=== PATIENT | female | born 1960 | race Caucasian/White ===

== ENCOUNTER 2018-03-24 10:31 | Inpatient (IN) | payer BC, OTHER ==
[~2018-03-24] VITALS: Ht 170.2 cm; Wt 57.2 kg
--- NOTE | 2018-03-24 15:20 | NUR ---
Pre-Admission Note Pre-Admission assessment completed in intake office. Client is a 58 y/o female seeking to be admitted for the medically managed withdrawal from ETOH (Vodka). Client presents with a flat affect, anxiety and agitation. Pt. reports drinking about 580ml of vodka a day for the past 16 months. Client reports drinking an ounce of vodka on the plane on her way here around 1330. Pt. has never been to drug rehab before. Pt. reports having a medical Hx of right ankle surgeries, HTN and Fractures on her pelvis, L2 and L4 from falls throughout the years. Pt. denies taking any home medications. Pt. is A/O x 4 and denies any SI, HI, VH, and AH. Will continue assessment when pt. is up on the unit.
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
[2018-03-24] MEDS ORDERED: ONDANSETRON ODT 4 MG TAB.RAPDIS SL PRN (18:30)
[2018-03-24] MEDS ORDERED: MAGNESIUM HYDROXIDE 30 ML LIQUID UDC PO PRN (18:30)
[2018-03-24] MEDS ORDERED: HYDROXYZINE PAMOATE 25 MG CAPSULE PO PRN (18:30)
[2018-03-24] MEDS ORDERED: MAG HYDROX/AL HYDROX/SIMETH 30 ML LIQUID UDC PO PRN (18:30)
[2018-03-24] MEDS ORDERED: DIAZEPAM 10 MG TABLET PO PRN (18:30)
[2018-03-24] MEDS ORDERED: DIAZEPAM 5 MG TABLET PO PRN (18:30)
[2018-03-24] MEDS ORDERED: LORAZEPAM 2 MG/1 ML VIAL IM PRN (18:30)
[2018-03-24] MEDS ORDERED: ACETAMINOPHEN 325 MG TABLET PO PRN (18:30)
[2018-03-24] MEDS ORDERED: LOPERAMIDE HCL 2 MG CAPSULE PO PRN ×2 (18:30)
[2018-03-24] MEDS ORDERED: THIAMINE HCL 200 MG/2 ML VIAL IM ONE (18:30)
[2018-03-24 19:02] LABS: *AMPHETAMINE, URINE NEGATIVE (NEGATIVE); *BARBITURATE, URINE NEGATIVE (NEGATIVE); *CANNABINOID, URINE NEGATIVE (NEGATIVE); *COCCAINE, URINE NEGATIVE (NEGATIVE); *OPIATE, URINE NEGATIVE (NEGATIVE); *PHENCYCLIDINE SCREEN,URINE NEGATIVE (NEGATIVE)
--- NOTE | 2018-03-24 19:30 | NUR ---
End of Shift: Pt. is a 58 y/o female admitted for the medically managed withdrawal from ETOH (Vodka). Pt. is currently on PRN medications and is awaiting further assessment by MD. Pt. provided urine and is awaiting labs to be drawn. Last CIWA of 7 at 1753. Safety measures in place. Endorse pt.'s care to oncoming shift.
--- NOTE | 2018-03-24 19:30 | NUR ---
Start of Shift Patient Received. Per endorsement, patient was admitted for ETOH and is set to start a 5 day Valium taper 03/25/18 0900 with PRN Valium available with increased signs and symptoms of withdrawal. Patients last noted drink was 1300 [address] flight[address] Patient is ambulatory with use of a walker. No medications administered upon admission. Admission CIWA 7. All needs attended to promptly. Will continue plan of care as ordered.
[2018-03-24 20:00] VITALS: BP 135/86
[2018-03-24 22:12] LABS: BASOPHILS % (AUTO) 0.4 % (0.0-2.0); EOSINOPHILS % (AUTO) 0.4 % (0.0-7.0); HEMATOCRIT 33.8 % (31.2-41.9); HEMOGLOBIN 11.6 g/dL (10.9-14.3); LYMPHOCYTES # (AUTO) 2.3 K/uL (20.0-40.0); LYMPHOCYTES % (AUTO) 33.8 % (20.5-51.5); MEAN CORPUSCULAR HEMOGLOBIN 36.9 uug (24.7-32.8); MEAN CORPUSCULAR HGB CONC 34 g/dL (32.3-35.6); MEAN CORPUSCULAR VOLUME 107.9 fL (75.5-95.3); MONOCYTES # (AUTO) 0.5 K/uL (2.0-10.0); MONOCYTES % (AUTO) 7.4 % (0.0-11.0); NEUTROPHILS # (AUTO) 3.9 K/uL (1.8-8.9); PLATELET COUNT (AUTO) 210 K/uL (179-408); RED BLOOD CELL COUNT(AUTO) 3.14 MIL/uL (3.63-4.92); WHITE BLOOD COUNT (AUTO) 6.7 K/uL (3.8-11.8)
[2018-03-24 22:29] LABS: ALANINE AMINOTRANSFERASE 31 U/L (14-59); ALKALINE PHOSPHATASE 86 U/L (50-136); AMYLASE 21 U/L (25-115); ASPARTATE AMINOTRANSFERASE 54 U/L (15-37); CARBON DIOXIDE 21 mmol/L (21-32); CHLORIDE 98 mmol/L (98-107); CREATININE 0.5 mg/dL (0.6-1.3); GLUCOSE 65 mg/dL (74-106); LIPASE 88 U/L (73-393); MAGNESIUM 1.3 mg/dL (1.8-2.4); POTASSIUM 3.2 mmol/L (3.5-5.1); TOTAL PROTEIN, SERUM 7.1 g/dL (6.4-8.2); UREA NITROGEN, BLOOD 15 mg/dL (7-18)
[2018-03-24 22:40] LABS: THYROID STIMULATING HORMONE 1.586 mIU/mL (0.358-3.740)
[2018-03-24 22:51] LABS: ETHANOL < 3 MG/DL (0-0)
[2018-03-25 00:11] VITALS: BP 158/93
[2018-03-25] MEDS ORDERED: MAGNESIUM OXIDE 400 MG TABLET PO ONE ×2 (00:15→09:00)
[2018-03-25] MEDS ORDERED: POTASSIUM CHLORIDE 20 MEQ TAB.PRT.SR PO ONE ×2 (00:15→09:00)
[2018-03-25] MEDS: CLONIDINE HCL 0.1 MG TABLET PO PRN ×2 (00:23→00:26)
[2018-03-25] MEDS: DIAZEPAM 10 MG TABLET PO PRN ×2 (00:23→00:26)
--- NOTE | 2018-03-25 00:30 | NUR ---
PRN Medication Administration Patient was noted awake for vitals. She is noted with increased anxiety, restlessness, agitation, increased sweats, tremulous, and light sensitivity. CIWA noted to be 12. PRN Clonidine and Valium 10 administered. patient was supplemented with Mag Ox 800mg and KDur 40meq for abnormal lab values. Patient tolerated well. All needs attended to promptly. Will continue to monitor.
--- NOTE | 2018-03-25 01:30 | NUR ---
PRN Medication Reassessment patient is noted in bed with eyes closed. Breathing even and non labored. No signs of restlessness or discomfort noted. PRN Clonidine and Valium noted to be effective. Will continue to monitor.
[2018-03-25 04:00] VITALS: BP 136/81
--- NOTE | 2018-03-25 04:00 | NUR ---
CIWA Patient is noted in bed with eyes closed. Breathing even and non labored. No signs of restlessness or discomfort noted. Vitals rendered and patient noted to remain asleep during vitals. CIWA unable to be completed as per order. Will continue to monitor.
--- NOTE | 2018-03-25 07:36 | NUR ---
BEGINNING OF SHIFT Patient endorsement report received from shift mechanic nurse, all pertinent information was discussed. Patient is a 58 year old female admitted on 03/24/2018. Patient with substance use of: etoh. with admitting Dx: etoh withdrawal. Patient continues on a 5 day Valium taper as ordered. Patient is scheduled to begin day 1 of taper. Patient received PRN: Clonidine and Valium during shift mechanic, as per shift mechanic nurse, medications were effective. Patient received in bed with eyes closed, respirations even and unlabored. Responsive to verbal stimuli, will educate patient regarding plan of care for the day and medication regimen. Will continue to monitor patient closely. Safety measures in place. call light kept with in reach.
--- NOTE | 2018-03-25 07:37 | NUR ---
End of Shift Patient is noted awake, alert and verbally responsive. Breathing even and non labored. Patient will start a 5 day Valium taper this morning 0900 with PRN Valium available for increased signs and symptoms of withdraws. Patient is ambulatory with use of a walker. Patient received PRN Valium 10 and PRN clonidine with medications noted to be effective. Labs resulted with potassium 3.2 and magnesium 1.3. New orders for one time dose of KDUR 40meq and one time dose of Mag Ox 800mg. patient noted to sleep a total of 8 hours. All needs attended to promptly. Will endorse to continue plan of care as ordered.
[2018-03-25 08:24] VITALS: BP 140/86
[2018-03-25] MEDS: FOLIC ACID 1 MG TABLET PO SCH (08:26)
[2018-03-25] MEDS: MULTIVITAMINS,THERAPEUTIC TABLET PO SCH (08:26)
[2018-03-25] MEDS: THIAMINE HCL 100 MG TABLET PO SCH (08:26)
[2018-03-25] MEDS: DIAZEPAM 10 MG TABLET PO SCH ×3 (08:26→21:53)
[2018-03-25] MEDS ORDERED: 4 DAY TAPER VALIUM-SERENITY PROTOCOL PO PRN (09:00)
[2018-03-25] MEDS ORDERED: TUBERCULIN,PURIF.PROT.DERIV. 5 TU/0.1 ML TEST ID ONE (09:00)
--- NOTE | 2018-03-25 09:00 | NUR ---
CIWA ASSESSMENT Patient noted exhibiting the following s/sx of withdrawal: Difficulty sitting still, fidgety, restless, arthralgias, myalgias, fine tremors, anxiety, agitation, difficulty concentrating, emotional volatility, and increased emotional amplitude. Patient with current COW score fo: 7, and current CIWA score of: 10. Received last dose of subutex taper, will continue to monitor. Addendum: 03/25/18 at 1836 by KIT COLUNGA LVN DISREGARD NOTE ABOVE, WRONG PATIENT
--- NOTE | 2018-03-25 09:01 | NUR ---
CIWA ASSESSMENT Patient exhibited the following s/sx of withdrawal: fine tremors, diaphoresis, anxiety, agitation, moderate head ache, difficulty concentrating, generalized discomfort, increased emotional amplitude, and emotional volatility. Patient with current CIWA score of: 15. Will continue to monitor, all scheduled meds administered as ordered.
--- NOTE | 2018-03-25 10:30 | NUR ---
Therapist prompted client to attend group therapy sessions and client agreed to do so.
[2018-03-25 12:39] VITALS: BP 153/93
--- NOTE | 2018-03-25 13:00 | NUR ---
CIWA ASSESSMENT Patient presents with the following s/sx: Fidgety, restless, Difficulty sitting still, arthralgias, myalgias, fine tremors, anxiety, agitation, difficulty concentrating, emotional volatility, and increased emotional amplitude. Patient with current COW score fo: 7, and current CIWA score of: 10. Will continue to monitor. Addendum: 03/25/18 at 1836 by KIT COLUNGA LVN DISREGARD NOTE ABOVE, WRONG PATIENT
--- NOTE | 2018-03-25 13:01 | NUR ---
CIWA ASSESSMENT Continues to exhibit the following s/sx of withdrawal: diaphoresis, anxiety, moderate head ache, difficulty concentrating, agitation,generalized discomfort, fine tremors,increased emotional amplitude, and emotional volatility. Patient with current CIWA score of: 15. Will continue to monitor, safety measures in place.
[2018-03-25 16:51] VITALS: BP 140/86
--- NOTE | 2018-03-25 17:00 | NUR ---
CIWA ASSESSMENT continues to exhibit the following s/sx: Fidgety, restless, Difficulty sitting still, arthralgias, myalgias, fine tremors, anxiety, agitation, difficulty concentrating, emotional volatility, and increased emotional amplitude. Patient with current COW score fo: 7, and current CIWA score of: 10. Will continue to monitor. Addendum: 03/25/18 at 1836 by KIT COLUNGA LVN DISREGARD NOTE ABOVE, WRONG PATIENT
--- NOTE | 2018-03-25 17:01 | NUR ---
CIWA ASSESSMENT Still noted presenting with: anxiety, moderate head ache, difficulty concentrating, diaphoresis,agitation, generalized discomfort, fine tremors,increased emotional amplitude, and emotional volatility. Patient with current CIWA score of: 15. Will continue to monitor.
[2018-03-25 18:17] LABS: CREATININE 0.7 mg/dL (0.6-1.3); MAGNESIUM 1.5 mg/dL (1.8-2.4); POTASSIUM 3.6 mmol/L (3.5-5.1)
--- NOTE | 2018-03-25 19:17 | NUR ---
END OF SHIFT Patient alert and oriented x4, continues with ongoing 5 day Valium taper, on day 1 of taper. Continues under close observation, during shift patient noted with flat affect and depressed/anxious mood. Patient exhibited the following s/sx of withdrawal: fine tremors, diaphoresis, anxiety, agitation, moderate head ache, difficulty concentrating, generalized discomfort, increased emotional amplitude, and emotional volatility. Patient with last CIWA score of: 15. Patient encouraged to participate in therapy sessions, and encouraged diversional activities to alleviate anxiety. Patient noted attending and participating, denies SI/HI. Received PPD during shift. Received no PRN during shift. Endorsed magnesium level of 1.5 to oncoming nurse. Patient endorsed to shift superintendent caustic cresylate nurse, all pertinent information was discussed.
--- NOTE | 2018-03-25 19:30 | NUR ---
Start of Shift Patient Received. Patient continues on a 5 day Valium taper. No PRN medications administered. PPD administered to left forearm. Labs drawn and magnesium noted to be 1.5 with MD made aware, currently awaiting orders for replacement. Last noted CIWA 15. Patient has been noted to be compliant with group and social activities. All needs attended to promptly. Will continue plan of care as ordered.
[2018-03-25 20:30] VITALS: BP 148/88
[2018-03-25] MEDS: diphenhydrAMINE 50 MG CAPSULE PO PRN (21:53)
--- NOTE | 2018-03-25 21:55 | NUR ---
PRN Medication Administration patient is noted verbalizing inability of falling asleep and verbalizes "through the night I have trouble staying asleep." PRN Benadryl administered with routine medications. Will continue to monitor.
--- NOTE | 2018-03-25 23:00 | NUR ---
PRN medication Reassessment Patient is noted in bed with eyes closed. Breathing even and non labored. No signs of pain or facial grimacing noted. patient received PRN Benadryl with medication noted to be effective. Will continue to monitor.
[2018-03-26 00:20] VITALS: BP 125/72
--- NOTE | 2018-03-26 00:30 | NUR ---
COWS Assessment Patient is noted in bed with eyes closed. Breathing even and non labored. No facial grimacing noted. Vital signs rendered. CIWA unable to be completed as per order. Will continue to monitor.
[2018-03-26 04:08] LABS: HEPATITIS B SURFACE AG Negative (Negative)
[2018-03-26 04:30] VITALS: BP 127/81
--- NOTE | 2018-03-26 04:30 | NUR ---
CIWA Assessment Patient is noted in bed with eyes closed. Breathing even and non labored. Vital signs rendered. CIWA not able to be completed as per order. Will continue to monitor.
--- NOTE | 2018-03-26 07:21 | NUR ---
End of Shift Patient is noted in bed with eyes closed. Breathing even and non labored. Patient continues on a 5 day Valium taper. Patient received PRN Benadryl administered and noted to be effective. Patient noted to sleep a total of 8 hours. Last noted CIWA 9. All needs attended to promptly. Will endorse to continue plan of care as ordered.
--- NOTE | 2018-03-26 07:38 | NUR ---
BEGINNING OF SHIFT Patient received in room awake, alert and oriented x4. Endorsement report received from surveillance dual rate officer nurse, all pertinent information was discussed. Patient continues on a 5 day Valium taper as ordered, with admitting Dx: etoh withdrawal. Patient is scheduled to begin day 2 of taper. Patient received PRN: Benadryl, as per surveillance dual rate officer nurse, medication effective, slept for 7 hours. Patient with last COW score of: 7. Safety measures are in place. Will continue to monitor patient closely. Safety measures in place.
[2018-03-26 08:53] VITALS: BP 158/94
[2018-03-26] MEDS: DIAZEPAM 5 MG TABLET PO SCH ×4 (09:00→22:02)
[2018-03-26] MEDS: THIAMINE HCL 100 MG TABLET PO SCH (09:00)
[2018-03-26] MEDS: FOLIC ACID 1 MG TABLET PO SCH (09:00)
[2018-03-26] MEDS: MULTIVITAMINS,THERAPEUTIC TABLET PO SCH (09:00)
--- NOTE | 2018-03-26 09:00 | NUR ---
CIWA ASSESSMENT Patient exhibited the following s/sx of withdrawal: anxiety, difficulty concentrating, agitation, generalized discomfort, fine tremors, increased emotional amplitude, and emotional volatility. Patient with CIWA score of: 9. Will continue to monitor.
--- NOTE | 2018-03-26 11:58 | NUR ---
PT EVAL Patient PT eval completed, as per PT, " No skilled PT need indicated at this time, Patient may ambulate ad haroon with 4WW as tolerated during LOS" Safety measures are in place, will continue to monitor.
[2018-03-26 12:37] VITALS: BP 139/87
--- NOTE | 2018-03-26 13:00 | NUR ---
CIWA ASSESSMENT Continues to present with: anxiety, difficulty concentrating, agitation, generalized discomfort, fine tremors, increased emotional amplitude, and emotional volatility. Patient with CIWA score of: 9. Will continue to monitor.
[2018-03-26] MEDS ORDERED: MAGNESIUM OXIDE 400 MG TABLET PO ONE (13:15)
[2018-03-26 16:41] VITALS: BP 147/97
--- NOTE | 2018-03-26 17:00 | NUR ---
CIWA ASSESSMENT Patient exhibited the following s/sx of withdrawal: anxiety, moderate head ache, difficulty concentrating, agitation, generalized discomfort, fine tremors, increased emotional amplitude, and emotional volatility. Patient with last CIWA score of: 12. Will continue to monitor.
[2018-03-26] MEDS: IBUPROFEN 400 MG TABLET PO PRN (17:28)
--- NOTE | 2018-03-26 17:29 | NUR ---
PRN MOTRIN Patient c/o headache 01/05, administered ibuprofen as ordered, will monitor effectiveness of medication.
--- NOTE | 2018-03-26 18:29 | NUR ---
MOTRIN REASSESSMENT Patient reports medication effective decrease in pain level, current pain level 3/10, will continue to monitor.
--- NOTE | 2018-03-26 19:15 | NUR ---
END OF SHIFT Patient continues under close observation. Alert and oriented x4 during shift. Patient continues with ongoing Valium taper as ordered. Patient noted with depressed affect and anxious mood. Encouraged patient to socialize with peers and attend group therapies/sessions to learn new coping skills to prevent relapse, noted attending and participating, denies SI/HI. Patient exhibited the following s/sx of withdrawal during shift: Patient exhibited the following s/sx of withdrawal: anxiety, moderate head ache, difficulty concentrating, agitation, generalized discomfort, fine tremors, increased emotional amplitude, and emotional volatility. Patient with last CIWA score of: 12. Patient continues on Valium taper as ordered. Patient received PRN: Motrin during shift for headache, medication effective. Will continue to monitor. Safety measures in place. Patient magnesium was replaced during shift, as per MD orders. Patient endorsed to production supervisor off shift nurse, all pertinent information was discussed.
--- NOTE | 2018-03-26 20:00 | NUR ---
Start of Shift Received report on 58 year old female admitted to [facility] for medically supervised withdrawal from ETOH. Pt received PRN Motrin x1. Last CIWA 5 @1600. Currently on day 2 of 3 day Valium taper. Pt awake, alert, and oriented anxious, preoccupied, restless, worried, and complains of insomnia. Respirations even and unlabored. Will cont to monitor.
[2018-03-26 21:32] VITALS: BP 153/93
[2018-03-26] MEDS: diphenhydrAMINE 50 MG CAPSULE PO PRN (22:02)
--- NOTE | 2018-03-26 22:02 | NUR ---
PRN Madonna Pt complains of insomnia. Benadryl given per order. Will monoitor effect.
--- NOTE | 2018-03-26 22:02 | NUR ---
Reassess PRN Benadryl Effective. Pt resting with eyes closed. Respirations even and unlabored.
--- NOTE | 2018-03-26 23:55 | NUR ---
CIWA/Vitals CIWA deferred. Vitals refused. Pt in bed resting with eyes closed. Respirations even and unlabored. Continue to monitor.
--- NOTE | 2018-03-27 04:10 | NUR ---
CIWA /Vitals CIWA deferred. Vitals refused. Pt in bed resting, Respirations even and unlabored. Continue to monitor.
--- NOTE | 2018-03-27 06:54 | NUR ---
End of Shift Will endorse care of 58 year old female admitted to [facility] for medically supervised withdrawal from ETOH. Pt received PRN Benedryl x1. Last CIWA 5 @1999. Currently on day 3 of 4 day Valium taper. PO intake 1960ml, void x 5, BM x 0, and slept x 7 hours. Pt in bed resting with eyes closed. Respirations even and unlabored.
[2018-03-27 07:45] LABS: BILIRUBIN,TOTAL 0.3 mg/dL (0.2-1.0); CREATININE 0.5 mg/dL (0.6-1.3); MAGNESIUM 1.6 mg/dL (1.8-2.4); TOTAL PROTEIN, SERUM 6.6 g/dL (6.4-8.2)
--- NOTE | 2018-03-27 07:45 | NUR ---
BEGINNING OF SHIFT Patient continues under close observation, continues with ongoing 4 day Valium taper as ordered, patient is scheduled to begin day 3 of Valium. Patient slept for 7 hours, received PRN: Benadryl. with last CIWA score of: 5. Patient received awake, alert and oriented x4, educated regarding plan of care for the day and medication regimen, with good verbal understanding. patients safety measures are in place. call light with in reach, will continue to monitor.
[2018-03-27 08:37] VITALS: BP 146/97
[2018-03-27] MEDS: MULTIVITAMINS,THERAPEUTIC TABLET PO SCH (08:40)
[2018-03-27] MEDS: THIAMINE HCL 100 MG TABLET PO SCH (08:40)
[2018-03-27] MEDS: FOLIC ACID 1 MG TABLET PO SCH (08:40)
[2018-03-27] MEDS: DIAZEPAM 5 MG TABLET PO SCH ×3 (08:40→21:58)
--- NOTE | 2018-03-27 08:45 | NUR ---
CIWA ASSESSMENT Patient noted exhibiting the following s/sx of withdrawal: anxiety, elevated heart rate, difficulty concentrating, agitation, generalized discomfort, fine tremors, increased emotional amplitude, and emotional volatility. CIWA score of:9.
[2018-03-27] MEDS: IBUPROFEN 400 MG TABLET PO PRN (10:43)
--- NOTE | 2018-03-27 10:43 | NUR ---
PRN MOTRIN Patient c/o generalized body pain 6, administered Motrin as ordered, will monitor effectiveness of medication.
--- NOTE | 2018-03-27 11:43 | NUR ---
MOTRIN REASSESSMENT Patient reports medication effective, current pain level 2/10, will continue to monitor.
--- NOTE | 2018-03-27 13:00 | NUR ---
CIWA ASSESSMENT Continues to present with the following s/sx of withdrawal: anxiety, elevated heart rate, difficulty concentrating, agitation, generalized discomfort, fine tremors, increased emotional amplitude, and emotional volatility. CIWA score of:9. Will continue to monitor.
[2018-03-27 13:08] VITALS: BP 170/108
[2018-03-27] MEDS: CLONIDINE HCL 0.1 MG TABLET PO PRN (13:12)
--- NOTE | 2018-03-27 13:12 | NUR ---
PRN CLONIDINE BP; 170/108 HR: 98, administered clonidine as ordered, will monitor effectiveness of medication, patient denies h/a, chest pain or SOB. will continue to monitor.
[2018-03-27] MEDS ORDERED: MAGNESIUM OXIDE 400 MG TABLET PO ONE (13:45)
[2018-03-27 14:12] VITALS: BP 145/89
--- NOTE | 2018-03-27 14:12 | NUR ---
CLONIDINE REASSESSMENT Medication effective, current BP: 145/89 HR: 90. Will continue to monitor.
--- NOTE | 2018-03-27 17:20 | NUR ---
CIWA ASSESSMENT Still noted exhibiting the following s/sx of withdrawal: anxiety, elevated heart rate, difficulty concentrating, agitation, generalized discomfort, fine tremors, increased emotional amplitude, and emotional volatility. CIWA score of:9. Will continue to monitor. safety measures in place.
[2018-03-27 17:51] VITALS: BP 126/89
--- NOTE | 2018-03-27 18:55 | NUR ---
END OF SHIFT Patient alert and oriented x4, continues under observation, with ongoing Valium taper as ordered. Patient at times noted with depressed/anxious mood, encouraged with calming reassurance and encouraged to express self as need. Patient was endorsed to slot shift manager nurse, all pertinent information was discussed. Monitored closely during shift, and noted exhibiting the following s/sx of withdrawal: anxiety, elevated heart rate, difficulty concentrating, agitation, generalized discomfort, fine tremors, increased emotional amplitude, and emotional volatility. Patient with last CIWA score of:9. Patient received PRN: Motrin during shift for headache, and Clonidine as ordered for elevated blood pressure, medications were effective. Dr. Doran was notified of patients Magnesium level, magnesium was replaced as ordered. Will continue to monitor. Safety measures in place.. Patient endorsed to slot shift manager nurse, all pertinent information was discussed.
[2018-03-27 20:00] VITALS: BP 138/85
--- NOTE | 2018-03-27 20:00 | NUR ---
CIWA 10 Upon assessment, px appears anxious. She states that her anxiety is 7/10. will continue to monitor
--- NOTE | 2018-03-27 20:00 | NUR ---
Start of Shift Note Received a 58 y/0 female px, admitted for medically supervised withdrawal from ETOH. Px was placed on 4 day Valium taper, started on 03/25/2018. She is tolerating it. Last reported CIWA 9 by AM shift nurse. During the rounds at 1999, vamshi is awake inside her room with her walker. Px appears anxious. Few drinks noted on top of the bed side table. She states that her anxiety is 7/10. She wanted to get Benadryl tonight to help her sleep. No more complains made. Bed on lowest position, side rails up 2x and call light within reach. Well continue to monitor.
[2018-03-27] MEDS: diphenhydrAMINE 50 MG CAPSULE PO PRN (21:58)
--- NOTE | 2018-03-27 21:58 | NUR ---
PRN Benadryl Px received Benadryl 50 mg PO for insomnia. will continue to monitor
--- NOTE | 2018-03-27 23:00 | NUR ---
CHICHO Brooks reassessment On assessment, px is still awake but states that she is sleepy and about to sleep already.
[2018-03-28] VITALS: BP 122/77
--- NOTE | 2018-03-28 | NUR ---
CIWA deferred CIWA deferred due to the px is asleep, to assess if the px is awake per doctor's order. will continue to monitor
[2018-03-28 04:00] VITALS: BP 118/71
--- NOTE | 2018-03-28 07:05 | NUR ---
End of Shift Note During the shift at 2158, she received Benadryl 50 mg PO for insomnia, it was effective. Oral intake of 1000 ml, voided 3x, No BM. Px slept for 8 hours. Last CIWA 10 at 1999. Bed on lowest position, side rails up 2x and call light within reach. Well continue to monitor. Px was endorsed to AM shift nurse.
--- NOTE | 2018-03-28 07:38 | NUR ---
Start of Shift Notes/Tylenol 650 mg PO given: Received endorsement from night nurse. Patient is a 58 year old female admitted for ETOH withdrawal who was placed on a 4-day Valium taper as ordered. No adverse reactions noted. Per night report, patient was given PRN Benadryl during the night. Last CIWA 10 and slept for 8 hours. Upon doing rounds at this time, patient was already awake. Alert and oriented x 4. Verbally responsive. She currently complains of 5/10 headache and moderate anxiety with increased agitation. Patient does appear anxious and restless with verbalization of wanting to go smoke. Encouraged patient to verbalize her feelings and concerns. Educated patient on her current plan of care for the day and her medication regimen. Encouraged oral fluid intake and encouraged group participation to learn new skills to prevent relapse. Will continue to monitor. Addendum: 03/28/18 at 0742 by OLVIN ALEXIS LVN Tylenol 650 mg PO given at 0738 for complain of 5/10 headache.
[2018-03-28 08:00] VITALS: BP 161/99
--- NOTE | 2018-03-28 08:00 | NUR ---
CIWA Assessment: CIWA 10, patient noted with increased anxiety, increased agitation and feelings of nervousness. Will medicate patient as ordered.
[2018-03-28 08:29] LABS: CREATININE 0.6 mg/dL (0.6-1.3); MAGNESIUM 1.8 mg/dL (1.8-2.4); POTASSIUM 4.3 mmol/L (3.5-5.1)
[2018-03-28] MEDS: DIAZEPAM 5 MG TABLET PO SCH ×2 (08:29→21:37)
[2018-03-28] MEDS: MULTIVITAMINS,THERAPEUTIC TABLET PO SCH (08:29)
[2018-03-28] MEDS: FOLIC ACID 1 MG TABLET PO SCH (08:29)
[2018-03-28] MEDS: THIAMINE HCL 100 MG TABLET PO SCH (08:29)
--- NOTE | 2018-03-28 08:29 | NUR ---
Clonidine 0.1mg PO given: Patient was given Clonidine 0.1mg PO as ordered for elevated blood pressure of 161/99, Pulse 88 and complains of anxiety, and intermittent sweats. Denies complains of chest pain or discomfort. Patient states "I'm just anxious, that's probably why." Redirected with non-pharmacological interventions. Will monitor for effectiveness.
[2018-03-28] MEDS: CLONIDINE HCL 0.1 MG TABLET PO PRN (08:30)
--- NOTE | 2018-03-28 08:38 | NUR ---
Re-assessment: Tylenol 650 mg PO Patient rates her headache to be a 2 out of 10. PRN Tylenol was effective.
--- NOTE | 2018-03-28 09:29 | NUR ---
Re-assessment: Clonidine Patient verbalizes mild relief from anxiety. Her blood pressure is now 140/71. Pulse 78. PRN Clonidine was effective.
[2018-03-28 12:00] VITALS: BP 135/89
--- NOTE | 2018-03-28 12:36 | NUR ---
CIWA Assessment: CIWA 9, patient continues to present with increased anxiety, intermittent perspirations, and restlessness. Oral fluids encouraged. Support provided.
--- NOTE | 2018-03-28 13:31 | NUR ---
Therapist prompted client to attend all group therapy sessions.
[2018-03-28 16:00] VITALS: BP 116/86
--- NOTE | 2018-03-28 16:08 | NUR ---
CIWA Assessment: CIWA 9, patient continues to present with anxiety, agitation, gross tremors, intermittent perspiration, and generalized discomfort. She was able to participate in group and activities. Support provided. Will continue to monitor.
--- NOTE | 2018-03-28 19:06 | NUR ---
End of Shift Notes: Patient continues to be on 4-day Valium as ordered to manage symptoms related to ETOH withdrawal. No adverse reactions noted. VS monitored closely. Noted with elevated blood pressure in AM requiring patient to be medicated with Clonidine at 0829 as ordered with help. Withdrawal symptoms were closely monitored. Initial CIWA 10, patient presented with a headache, malaise, fatigue, anxiety, agitation, tremors, intermittent perspiration, worried facial expression and generalized discomfort. Last CIWA 9. Medicated patient with Tylenol 650 mg PO as ordered at 0738 for headache with help. Able to participate in group and activities despite her withdrawal symptoms. Appetite good. All needs met and attended. Will continue to monitor closely.
--- NOTE | 2018-03-28 19:30 | NUR ---
START OF SHIFT Pt is a 58 year old female admitted for ETOH withdrawals; continues on a 4-day Valium taper as ordered and is tolerating well. Last CIWA=9.Pt received in room, A/A/O X 4. Pt was given PRN Tylenol and Clonidine per day day shift and was effective. Pt c/o mild headache and anxiety but does not want to take any medication at this time. All safety measures are in place.Bed in lowest position. Side rails up x2. Call light is within reach. Will continue to monitor.
[2018-03-28 20:00] VITALS: BP 154/90
--- NOTE | 2018-03-29 | NUR ---
CIWA CIWA deferred. Vitals refused. Pt in bed resting, Respirations even and unlabored. Continue to monitor.
--- NOTE | 2018-03-29 04:00 | NUR ---
CIWA CIWA deferred. Vitals refused. Pt in bed resting, Respirations even and unlabored. Continue to monitor.
--- NOTE | 2018-03-29 06:56 | NUR ---
END OF SHIFT Pt is a 58 year old female admitted for ETOH withdrawals; completed Valium taper as ordered . Last CIWA=9. No PRN meds given last night.Pt slept 8 hours,fluid intake was 750 ml,voided x 1.All safety measures are in place.Bed in lowest position. Side rails up x2. Call light is within reach. Will continue to monitor.
--- NOTE | 2018-03-29 07:30 | NUR ---
start of shift note: received pt from [facility] nurse, pt is in stable condition at this time, pt completed Valium taper without a/r pt's last noted ciwa is 9. [facility]. pt ambulates with a walker with long distances. will continue to monitor pt for any changes and continue to meet pt's needs
[2018-03-29] MEDS: THIAMINE HCL 100 MG TABLET PO SCH (08:37)
[2018-03-29] MEDS: MULTIVITAMINS,THERAPEUTIC TABLET PO SCH (08:37)
[2018-03-29] MEDS: FOLIC ACID 1 MG TABLET PO SCH (08:37)
[2018-03-29 09:53] VITALS: BP 143/92
[2018-03-29 12:00] VITALS: BP 164/106
--- NOTE | 2018-03-29 12:50 | NUR ---
Therapist prompted client to attend all group therapy sessions.
[2018-03-29] MEDS: CLONIDINE HCL 0.1 MG TABLET PO PRN (12:52)
--- NOTE | 2018-03-29 12:52 | NUR ---
PRN administration: pt with increased B/P of 154/106 PRN clonidine was administered, pt also with complaints of back pain, pain level 8/10 motrin was administered will re-assess effectiveness of medication
[2018-03-29] MEDS: IBUPROFEN 400 MG TABLET PO PRN (12:55)
--- NOTE | 2018-03-29 13:00 | NUR ---
ciwa assessment: pt verbalizes she feels better and that the shakes are gone, pt with mild anxiety and agiatation from last group. pt's current ciwa is 5
--- NOTE | 2018-03-29 13:52 | NUR ---
PRN reassessment: clonidine and motrin were effective pain level 2/10 for back pain and re-assessment fo b/p is now 127/85.
[2018-03-29] MEDS ORDERED: CLON0.1T14 PO (15:11)
[2018-03-29] MEDS ORDERED: MULT-24 PO (15:12)
[2018-03-29] MEDS ORDERED: DIPH50CA37 PO (15:12)
[2018-03-29] MEDS ORDERED: METH-406 PO (15:27)
[2018-03-29 16:30] VITALS: BP 141/94
[2018-03-29] MEDS: METHOCARBAMOL 750 MG TABLET PO PRN (17:26)
--- NOTE | 2018-03-29 19:30 | NUR ---
START OF SHIFT Pt is a 58 year old female admitted for ETOH withdrawals; she has completed her Valium taper and is scheduled for discharge tomorrow. Last CIWA = 5..Pt received in room, A/A/O X 4. Pt was given PRN Clonidine and Motrin per day day shift and was effective.No scheduled medications for tonight. Pt is c/o mild headache and anxiety but does not want to take any medication at this time. All safety measures are in place.Bed is locked in lowest position. Side rails up x2. Call light is within reach, will continue to monitor.
--- NOTE | 2018-03-29 19:35 | NUR ---
end of shift note: pt is in stable condition at this time, pt completed Valium taper without a/r pt's last noted ciwa is 5. [facility]. pt ambulates with a walker with long distances and has robaxin for back pain. will continue to monitor pt for any changes and continue to meet pt's needs. pt is to discharge tomorrow
[2018-03-29 20:00] VITALS: BP 114/76
--- NOTE | 2018-03-29 20:00 | NUR ---
CIWA = 5., m/b anxiety and restlessness.Pt does not want to take any medications when offered,will continue to monitor.
--- NOTE | 2018-03-29 22:00 | NUR ---
Pt seen sitting in her chair in her room,offered her some medications so that she can get some rest. Pt refused, stated that she will stay awake all night so that she can sleep well when she goes to the new place.
[2018-03-30] VITALS: BP 121/72
--- NOTE | 2018-03-30 | NUR ---
CIWA = 5., m/b anxiety and restlessness.Pt does not want to take any medications when offered,will continue to monitor.
[2018-03-30] MEDS: IBUPROFEN 400 MG TABLET PO PRN (02:02)
[2018-03-30] MEDS: METHOCARBAMOL 750 MG TABLET PO PRN (02:02)
--- NOTE | 2018-03-30 02:03 | NUR ---
PRN MEDS PT C/O ANXIETY AND BACK PAIN 01/05. PRN VISTARIL,ROBAXIN AND MOTRIN GIVEN ORDERED.WILL MONITOR FOR EFFECTIVENESS.
--- NOTE | 2018-03-30 03:00 | NUR ---
PRN F/U Pt is resting with eyes closed; breathing is even an non labored,no s/s of distress noted,will continue to monitor.
--- NOTE | 2018-03-30 04:00 | NUR ---
CIWA CIWA deferred. Vitals refused. Pt is resting in chair with eyes closed, Respirations even and unlabored,no s/s of distress noted. Continue to monitor.
--- NOTE | 2018-03-30 06:50 | NUR ---
END OF SHIFT Pt is a 58 year old female admitted for ETOH withdrawals; completed Valium taper as ordered and is scheduled for discharge today. Last CIWA=5. PRN meds Vistaril,Motrin and Robaxin were given last night and were effective.Pt has been feeling anxious, preoccupied with being discharged today,was reluctant to take any meds first,then took meds at 0200.Pt slept 4 hours,fluid intake was 1550 ml,voided x 3.All safety measures are in place.Bed in lowest position. Side rails up x2. Call light is within reach. Will continue to monitor.
[2018-03-30 08:00] VITALS: BP 138/98
--- NOTE | 2018-03-30 08:00 | NUR ---
Start of Shift Notes/Tylenol 650 mg PO given: Received endorsement from night nurse. Patient is a 58 year old female admitted for ETOH withdrawal who was placed on a 4-day Valium taper as ordered. No adverse reactions noted. Per night report, patient was given Robaxin, Vistaril and Motrin during the night. Last CIWA 5 and slept intermittently for a total of 4 hours due to anxiety regarding the discharge process. Upon doing rounds at this time, patient is awake, alert and oriented x 4. Verbally responsive. Denies S/I or H/I noted. No AV hallucinations noted. She complains of moderate anxiety and restlessness. Patient does appear anxious and restless with verbalization of wanting to go smoke and getting discharged earlier. Encouraged patient to verbalize her feelings and concerns. CIWA 7 at this time. Educated patient on her current plan of care for the day and her medication regimen. Encouraged oral fluid intake and encouraged group participation to learn new skills to prevent relapse. Will continue to monitor. Addendum: 03/30/18 at 0954 by OLVIN ALEXIS LVN error in charting
[2018-03-30] MEDS: FOLIC ACID 1 MG TABLET PO SCH (08:25)
[2018-03-30] MEDS: MULTIVITAMINS,THERAPEUTIC TABLET PO SCH (08:25)
[2018-03-30] MEDS: THIAMINE HCL 100 MG TABLET PO SCH (08:25)
--- NOTE | 2018-03-30 09:48 | NUR ---
Discharged: Patient education provided regarding her discharge instructions. VS stable. CIWA 7. Denies S/I or H/I noted. No AV hallucinations noted. Patient verbalized good understanding of all discharge teachings. All pertinent information discussed. Clothing, valuables and personal belongings were returned to the patient. Placed all necessary DC paperwork inside blue and black duffel bag. Discharge packet also included. [employer] cabinet checked. Cassette checked. Patient was picked up by [facility] to be transported to [facility]. All needs met and attended. Patient left in stable condition.
== END 2018-03-30 09:48 | disposition other institution (70) | DRG 895 ==
LOC: SRC 16:35
PROVIDERS: ADMIT Family Medicine Addiction Medicine; ATTEND Family Medicine Addiction Medicine
PROC: HZ2ZZZZ Detoxification Services for Substance Abuse Treatment (ICD-10-PCS; 2018-03-24)
PROC: HZ41ZZZ Group Counseling for Substance Abuse Treatment, Behavioral (ICD-10-PCS; 2018-03-25)
PROC: HZ59ZZZ Individual Psychotherapy for Substance Abuse Treatment, Supportive (ICD-10-PCS; principal; 2018-03-27)
PROC: HZ31ZZZ Individual Counseling for Substance Abuse Treatment, Behavioral (ICD-10-PCS; 2018-03-27)
DX: F10.230 Alcohol dependence with withdrawal, uncomplicated (principal); Y90.0 Blood alcohol level of less than 20 mg/100 ml; F17.210 Nicotine dependence, cigarettes, uncomplicated; Z88.6 Allergy status to analgesic agent; Z88.0 Allergy status to penicillin; Z91.013 Allergy to seafood; Z81.1 Family history of alcohol abuse and dependence; E87.6 Hypokalemia; E83.42 Hypomagnesemia; G47.00 Insomnia, unspecified; I10 Essential (primary) hypertension; F32.9 Major depressive disorder, single episode, unspecified; R73.9 Hyperglycemia, unspecified; Z87.81 Personal history of (healed) traumatic fracture
CPT/HCPCS: 36415; 70030-TC; 80307; 83690; 83735; 84443; 85025; 86580; 86592; 86705; 86803; 87340; 87806; G0480; J3411; Q0163